=== PATIENT | male | born 1995 | race Caucasian/White ===

== ENCOUNTER 2019-04-13 08:11 | Emergency (ER) | payer MEDICAID ==
[~2019-04-13] VITALS: Ht 185.4 cm; Wt 66.0 kg
[2019-04-13 08:13] VITALS: BP 120/77
--- NOTE | 2019-04-13 09:06 | NUR ---
PATIENT PRESENTS TO ED TODAY FOR BACK PAIN RADIATING TO LOWER EXT (WHEN LEANING FORWARD) DUE TO INJURY YESTERDAY, REPORTS LIFTING ALL DAY YESTERDAY AND INJURY OCCURRED AFTER HOPPING OFF A TRUCK. PA AT BEDSIDE, AWAITING FURTHER ORDERS. NO ADDITIONAL NEEDS AT THIS TIME.
[2019-04-13] MEDS ORDERED: ACETAMINOPHEN 500 MG TABLET ONE (09:11)
[2019-04-13] MEDS ORDERED: KETOROLAC 30 MG/1 ML ONE (09:13)
[2019-04-13] MEDS ORDERED: KETOROLAC 60 MG/2 ML IM ONE (09:30)
[2019-04-13] MEDS ORDERED: ACETAMINOPHEN 500 MG TABLET PO ONE (09:30)
--- NOTE | 2019-04-13 10:10 | NUR ---
XRAY NOTIFIED REGARDING DELAY IN READING XRAY. AWAITING RESULTS.
--- NOTE | 2019-04-13 10:10 | NUR ---
XRAY NOTIFIED REGARDING DELAY IN READING XRAY. AWAITING RESULTS.
--- NOTE | 2019-04-13 10:33 | NUR ---
Patient/Caregiver given discharge instructions and they have confirmed that they understand the instructions. Patient ambulatory with steady gait.
== END 2019-04-13 10:35 | disposition home or self-care (01) ==
LOC: ED 10:27
DX: S33.5XXA Sprain of ligaments of lumbar spine, initial encounter (principal); S39.012A Strain of muscle, fascia and tendon of lower back, initial encounter; W17.89XA Other fall from one level to another, initial encounter; Y93.89 Activity, other specified; Y92.89 Other specified places as the place of occurrence of the external cause; Y99.8 Other external cause status
CPT/HCPCS: 72110; 96372; 99283; J1885

== ENCOUNTER 2020-01-12 08:31 | Emergency (ER) | payer MEDICAID ==
[~2020-01-12] VITALS: Ht 188 cm; Wt 65.9 kg
[2020-01-12 08:45] VITALS: BP 111/60
[2020-01-12] MEDS ORDERED: DEXAMETHASONE 4 MG/ML, 5ML ONE (09:08)
[2020-01-12] MEDS ORDERED: DEXAMETHASONE 4 MG/ML, 1ML PO ONE (09:30)
--- NOTE | 2020-01-12 09:42 | NUR ---
Patient/Caregiver given discharge instructions and they have confirmed that they understand the instructions. Patient ambulatory with steady gait.
== END 2020-01-12 09:45 | disposition home or self-care (01) ==
LOC: ED 08:50
DX: J02.0 Streptococcal pharyngitis (principal)
CPT/HCPCS: 99283; J1100

== ENCOUNTER 2020-01-19 06:56 | Emergency (ER) | payer MEDICAID ==
[~2020-01-19] VITALS: Ht 188 cm; Wt 67.0 kg
[2020-01-19 07:12] VITALS: BP 120/45
[2020-01-19] MEDS ORDERED: HYDROcodone/APAP 7.5-325MG/15ML UDC ONE (07:53)
[2020-01-19] MEDS ORDERED: DEXAMETHASONE 4 MG TABLET ONE (07:53)
--- NOTE | 2020-01-19 07:58 | NUR ---
LAB IN TO DRAW BLOOD. PT MEDICATED ORDERED. PT AWARE OF NOT TO DRIVE AFTER RECEIVING NARCOTIC PAIN MEDICATION. WAITING FOR TEST RESULTS.
[2020-01-19] MEDS ORDERED: DEXAMETHASONE 4 MG TABLET PO ONE (08:00)
[2020-01-19] MEDS ORDERED: HYDROcodone/APAP 7.5-325MG/15ML UDC PO ONE (08:00)
[2020-01-19 08:09] LABS: BASOPHILS # (AUTO) 0.02 x10^3/uL (0-0.1); BASOPHILS % (AUTO) 0 % (0-1); EOSINOPHILS # (AUTO) 0.16 x10^3/uL (0-0.4); EOSINOPHILS % (AUTO) 2 % (1-7); LYMPHOCYTES # (AUTO) 1.54 x10^3/uL (1-3.4); LYMPHOCYTES % (AUTO) 17 % (22-44); MD NO; MEAN CORPUSCULAR HEMOGLOBIN 29.6 pg (27.5-34.5); MEAN CORPUSCULAR HGB CONC 33.3 g/dL (33.2-36.2); MEAN CORPUSCULAR VOLUME 88.8 fL (81-97); MEAN PLATELET VOLUME 10.1 fL (7.4-10.4); MONOCYTES # (AUTO) 0.94 x10^3/uL (0.2-0.8); MONOCYTES % (AUTO) 10 % (2-9); NEUTROPHILS # (AUTO) 6.37 x10^3/uL (1.8-6.8); NEUTROPHILS % (AUTO) 71 % (42-75); PLATELET COUNT 228 x10^3/uL (130-400); RED CELL DISTRIBUTION WIDTH 13.9 % (9.4-14.8)
--- NOTE | 2020-01-19 08:55 | NUR ---
PT SITTING UP ON GURNEY, NO ACUTE DISTRESS. PAIN DECREASED TO 4/10 "THIS IS THE FIRST TIME IN 4 DAYS THAT I HAVE BEEN ABLE TO SWALLOW WITHOUT CLINCHING UP MY FACE" PT AWARE OF WAITING FOR MONOSPOT TEST. NO NEEDS EXPRESSED AT THIS TIME.
[2020-01-19] MEDS ORDERED: CEFTRIAXONE 1,000 MG IM ONE (09:00)
[2020-01-19] MEDS ORDERED: LIDOCAINE-MPF 1%, 2ML ONE (09:26)
[2020-01-19] MEDS ORDERED: CEFAZOLIN 1,000 MG ONE (09:26)
== END 2020-01-19 09:57 | disposition home or self-care (01) ==
LOC: ED 07:35
DX: J03.90 Acute tonsillitis, unspecified (principal); R53.83 Other fatigue
CPT/HCPCS: 36415; 85025; 86308; 87081; 87880; 96372; 99283; J0696